=== PATIENT | female | born 1945 | race Caucasian/White ===

== ENCOUNTER → 2023-09-07 07:41 | Outpatient (REF) | payer MEDICARE, OTHER, SELFPAY ==
[2023-09-07 08:54] LABS: % Basophils 0.4 % (0-2); % Eosinophils 1.7 % (0-6); % Immature Granulocytes 0.3 % (0-0.5); % Lymphocytes 22.6 % (20.5-51.1); % Monocytes 11.9 % (1.7-9.3); % Neutrophils 63.1 % (42.2-75.2); Absolute Eosinophils 0.1 10^3/uL (0-0.7); Absolute Lymphocytes 1.7 10^3/uL (1.2-3.4); Absolute Monocytes 0.9 10^3/uL (0.1-0.6); Absolute Neutrophils 4.8 10^3/uL (1.4-6.5); Hematocrit 39.3 % (37.0-47.0); Hemoglobin 12.8 g/dL (12.0-16.0); Mean Corp Hgb Conc. 32.6 g/dL (33.0-37.0); Mean Corpuscular Hgb 30.8 pg (27.0-31.0); Mean Corpuscular Volume 94.7 fL (81.0-99.0); Nucleated Red Blood Cells % 0 %; Platelet Count 171 10^3/uL (130-400); Red Blood Cell Count 4.15 10^6/uL (4.20-5.40); Red Cell Dist. Width 13.2 % (11.5-14.5); White Blood Cell Count 7.6 10^3/uL (4.8-10.8)
[2023-09-07 09:12] LABS: Blood Urea Nitrogen 22 mg/dl (7-17); Calcium 9.7 mg/dl (8.4-10.2); Carbon Dioxide 23 mmol/L (22-30); Chloride 105 mmol/L (98-107); Glucose 101 mg/dl (70-99); Sodium 138 mmol/L (135-145); eGFR > 60.00
== END ==
LOC: RCS 07:41
PROVIDERS: ATTENDING PHYSICIAN Orthopaedic Surgery; FAMILY PHYSICIAN Physician Assistant Medical
DX: Z01.818 Encounter for other preprocedural examination (principal)
CPT/HCPCS: 36415; 80048; 85025; 93005

== ENCOUNTER → 2023-09-22 09:21 | Outpatient (REF) | payer MEDICARE, OTHER, SELFPAY ==
[2023-09-22 09:29] LABS: % Basophils 0.4 % (0-2); % Eosinophils 1.7 % (0-6); % Immature Granulocytes 0.1 % (0-0.5); % Lymphocytes 23.8 % (20.5-51.1); % Monocytes 11.2 % (1.7-9.3); % Neutrophils 62.8 % (42.2-75.2); Absolute Eosinophils 0.1 10^3/uL (0-0.7); Absolute Lymphocytes 1.7 10^3/uL (1.2-3.4); Absolute Monocytes 0.8 10^3/uL (0.1-0.6); Absolute Neutrophils 4.4 10^3/uL (1.4-6.5); Hemoglobin 12.6 g/dL (12.0-16.0); Mean Corp Hgb Conc. 34.1 g/dL (33.0-37.0); Mean Corpuscular Hgb 31.7 pg (27.0-31.0); Mean Platelet Volume 10.7 fL (7.4-10.4); Platelet Count 164 10^3/uL (130-400); Red Blood Cell Count 3.98 10^6/uL (4.20-5.40); White Blood Cell Count 7.1 10^3/uL (4.8-10.8)
== END ==
LOC: OIDL 09:21
PROVIDERS: ATTENDING PHYSICIAN Internal Medicine Hematology & Oncology; OTHER PHYSICIAN Physician Assistant Medical
DX: C50.912 Malignant neoplasm of unspecified site of left female breast (principal); Z85.3 Personal history of malignant neoplasm of breast
CPT/HCPCS: 85025

== ENCOUNTER 2023-10-13 09:14 | Outpatient (RCR) | payer MEDICARE, OTHER, SELFPAY | END 2023-10-13 23:59 | disposition home or self-care (01) | LOC: RPT 09:14 | PROVIDERS: ATTENDING PHYSICIAN Orthopaedic Surgery; FAMILY PHYSICIAN Physician Assistant Medical | DX: R26.89 Other abnormalities of gait and mobility (principal); Z96.652 Presence of left artificial knee joint; Z73.6 Limitation of activities due to disability | CPT/HCPCS: 97010; 97110; 97162 ==

== ENCOUNTER 2023-11-13 07:55 | Outpatient (RCR) | payer MEDICARE, OTHER, SELFPAY | END 2023-11-13 23:59 | disposition home or self-care (01) | LOC: RPT 07:55 | PROVIDERS: ATTENDING PHYSICIAN Orthopaedic Surgery; FAMILY PHYSICIAN Physician Assistant Medical | DX: Z47.1 Aftercare following joint replacement surgery (principal); Z96.652 Presence of left artificial knee joint | CPT/HCPCS: 97010; 97110; 97112 ==

== ENCOUNTER → 2023-11-18 10:59 | Outpatient (REF) | payer MEDICARE, OTHER, SELFPAY ==
[2023-11-18 11:55] LABS: % Basophils 0.4 % (0-2); % Eosinophils 2.5 % (0-6); % Immature Granulocytes 0.4 % (0-0.5); % Lymphocytes 17.7 % (20.5-51.1); % Monocytes 11.3 % (1.7-9.3); % Neutrophils 67.7 % (42.2-75.2); Absolute Eosinophils 0.3 10^3/uL (0-0.7); Absolute Lymphocytes 1.9 10^3/uL (1.2-3.4); Absolute Monocytes 1.2 10^3/uL (0.1-0.6); Absolute Neutrophils 7.1 10^3/uL (1.4-6.5); Hematocrit 35.4 % (37.0-47.0); Hemoglobin 11.9 g/dL (12.0-16.0); Mean Corp Hgb Conc. 33.6 g/dL (33.0-37.0); Mean Corpuscular Hgb 30.8 pg (27.0-31.0); Mean Corpuscular Volume 91.7 fL (81.0-99.0); Mean Platelet Volume 10.8 fL (7.4-10.4); Nucleated Red Blood Cells % 0 %; Platelet Count 188 10^3/uL (130-400); Red Blood Cell Count 3.86 10^6/uL (4.20-5.40); Red Cell Dist. Width 13.3 % (11.5-14.5); White Blood Cell Count 10.5 10^3/uL (4.8-10.8)
[2023-11-18 13:20] LABS: ALT (SGPT) 12 U/L (0-35); AST (SGOT) 23 U/L (14-36); Albumin 4.3 g/dl (3.5-5.0); Alkaline Phosphatase 80 U/L (38-126); Blood Urea Nitrogen 17 mg/dl (7-17); Calcium 9.8 mg/dl (8.4-10.2); Carbon Dioxide 23 mmol/L (22-30); Chloride 101 mmol/L (98-107); Glucose 97 mg/dl (70-99); Potassium 4.1 mmol/L (3.5-5.1); Sodium 139 mmol/L (135-145); Total Bilirubin 1.4 mg/dl (0.2-1.3); Total Protein 6.9 g/dl (6.3-8.2); eGFR > 60.00
== END ==
LOC: REG 10:59
PROVIDERS: ATTENDING PHYSICIAN Physician Assistant Medical
DX: R53.83 Other fatigue (principal); R42 Dizziness and giddiness; R10.30 Lower abdominal pain, unspecified; R19.4 Change in bowel habit; R53.1 Weakness
CPT/HCPCS: 36415; 80053; 85025

== ENCOUNTER → 2023-11-25 12:56 | Outpatient (REF) | payer MEDICARE, OTHER, SELFPAY | LOC: RAD 12:56 | PROVIDERS: ATTENDING PHYSICIAN Physician Assistant Medical | DX: R53.83 Other fatigue (principal) | CPT/HCPCS: 74178; Q9967 ==

== ENCOUNTER 2023-11-27 12:54 | Outpatient (RCR) | payer MEDICARE, OTHER, SELFPAY | END 2023-11-27 23:59 | disposition home or self-care (01) | LOC: RPT 12:54 | PROVIDERS: ATTENDING PHYSICIAN Orthopaedic Surgery; FAMILY PHYSICIAN Physician Assistant Medical | DX: Z47.1 Aftercare following joint replacement surgery (principal); Z73.6 Limitation of activities due to disability; R26.89 Other abnormalities of gait and mobility; Z96.652 Presence of left artificial knee joint | CPT/HCPCS: 97010; 97110; 97112; 97530 ==

== ENCOUNTER → 2023-12-03 06:18 | Day surgery (SDC) | payer MEDICARE, OTHER, SELFPAY | LOC: GI 06:18 | PROVIDERS: ATTENDING PHYSICIAN Internal Medicine | DX: D12.3 Benign neoplasm of transverse colon (principal); D12.5 Benign neoplasm of sigmoid colon; K51.40 Inflammatory polyps of colon without complications; K57.30 Diverticulosis of large intestine without perforation or abscess without bleeding; K29.60 Other gastritis without bleeding; R93.3 Abnormal findings on diagnostic imaging of other parts of digestive tract; R19.4 Change in bowel habit; R63.4 Abnormal weight loss | CPT/HCPCS: 45385; 45380; 43239; 88305; 88342 ==

== ENCOUNTER → 2023-12-21 12:43 | Outpatient (REF) | payer MEDICARE, OTHER, SELFPAY | LOC: RAD 12:43 | PROVIDERS: ATTENDING PHYSICIAN Internal Medicine Cardiovascular Disease; FAMILY PHYSICIAN Physician Assistant Medical | DX: R06.09 Other forms of dyspnea (principal); R60.0 Localized edema | CPT/HCPCS: 93970 ==

== ENCOUNTER → 2024-01-05 10:11 | Outpatient (REF) | payer MEDICARE, OTHER, SELFPAY | LOC: RCS 10:11 | PROVIDERS: ATTENDING PHYSICIAN Internal Medicine Cardiovascular Disease; FAMILY PHYSICIAN Physician Assistant Medical | DX: I34.0 Nonrheumatic mitral (valve) insufficiency (principal); I07.1 Rheumatic tricuspid insufficiency; R06.09 Other forms of dyspnea; R60.0 Localized edema; Z85.3 Personal history of malignant neoplasm of breast | CPT/HCPCS: 93306 ==

== ENCOUNTER → 2024-02-02 06:54 | Outpatient (REF) | payer MEDICARE, OTHER, SELFPAY | LOC: WDC 06:54 | PROVIDERS: ATTENDING PHYSICIAN Internal Medicine Hematology & Oncology; FAMILY PHYSICIAN Physician Assistant Medical | DX: Z12.31 Encounter for screening mammogram for malignant neoplasm of breast (principal); Z85.3 Personal history of malignant neoplasm of breast; C50.912 Malignant neoplasm of unspecified site of left female breast; C50.411 Malignant neoplasm of upper-outer quadrant of right female breast | CPT/HCPCS: 77063; 77067 ==

== ENCOUNTER → 2024-02-15 09:47 | Outpatient (REF) | payer MEDICARE, OTHER, SELFPAY | LOC: RAD 09:47 | PROVIDERS: ATTENDING PHYSICIAN Internal Medicine Critical Care Medicine; FAMILY PHYSICIAN Physician Assistant Medical; REFERRING PHYSICIAN Internal Medicine Endocrinology, Diabetes & Metabolism | DX: R91.8 Other nonspecific abnormal finding of lung field (principal); E04.2 Nontoxic multinodular goiter | CPT/HCPCS: 71250; 76536 ==

== ENCOUNTER 2024-10-13 06:48 | Outpatient (RCR) | payer MEDICARE, OTHER, SELFPAY | END 2024-10-13 23:59 | disposition home or self-care (01) | LOC: RPT 06:48 | PROVIDERS: ATTENDING PHYSICIAN Orthopaedic Surgery; FAMILY PHYSICIAN Physician Assistant Medical | DX: Z47.1 Aftercare following joint replacement surgery (principal); Z73.6 Limitation of activities due to disability; R26.89 Other abnormalities of gait and mobility; M25.561 Pain in right knee; M62.81 Muscle weakness (generalized); Z96.651 Presence of right artificial knee joint | CPT/HCPCS: 97010; 97110; 97162 ==

== ENCOUNTER 2024-11-09 06:47 | Outpatient (RCR) | payer MEDICARE, OTHER, SELFPAY | END 2024-11-09 23:59 | disposition home or self-care (01) | LOC: RPT 06:47 | PROVIDERS: ATTENDING PHYSICIAN Orthopaedic Surgery; FAMILY PHYSICIAN Physician Assistant Medical | DX: Z47.1 Aftercare following joint replacement surgery (principal); Z73.6 Limitation of activities due to disability; R26.89 Other abnormalities of gait and mobility; M25.561 Pain in right knee; M62.81 Muscle weakness (generalized); Z96.651 Presence of right artificial knee joint | CPT/HCPCS: 97010; 97110; 97112 ==

== ENCOUNTER → 2024-12-01 12:54 | Outpatient (REF) | payer MEDICARE, OTHER, SELFPAY | LOC: HWRCS 12:54 | PROVIDERS: ATTENDING PHYSICIAN Internal Medicine Cardiovascular Disease; FAMILY PHYSICIAN Physician Assistant Medical | DX: I34.0 Nonrheumatic mitral (valve) insufficiency (principal); I07.1 Rheumatic tricuspid insufficiency | CPT/HCPCS: 93306 ==

== ENCOUNTER 2024-12-13 06:20 | Outpatient (RCR) | payer MEDICARE, OTHER, SELFPAY | END 2024-12-13 23:59 | disposition home or self-care (01) | LOC: RPT 06:20 | PROVIDERS: ATTENDING PHYSICIAN Orthopaedic Surgery; FAMILY PHYSICIAN Physician Assistant Medical | DX: Z47.1 Aftercare following joint replacement surgery (principal); Z73.6 Limitation of activities due to disability; R26.89 Other abnormalities of gait and mobility; M25.561 Pain in right knee; M62.81 Muscle weakness (generalized); Z96.651 Presence of right artificial knee joint | CPT/HCPCS: 97010; 97110; 97112 ==

== ENCOUNTER 2024-12-19 08:21 | Outpatient (RCR) | payer MEDICARE, OTHER, SELFPAY | END 2024-12-20 12:26 | disposition home or self-care (01) | LOC: RPT 08:21 | PROVIDERS: ATTENDING PHYSICIAN Orthopaedic Surgery; FAMILY PHYSICIAN Physician Assistant Medical | DX: Z47.1 Aftercare following joint replacement surgery (principal); Z73.6 Limitation of activities due to disability; R26.89 Other abnormalities of gait and mobility; M25.561 Pain in right knee; M62.81 Muscle weakness (generalized); Z96.651 Presence of right artificial knee joint | CPT/HCPCS: 97110; 97112 ==

== ENCOUNTER → 2025-02-02 07:10 | Outpatient (REF) | payer MEDICARE, OTHER, SELFPAY | LOC: WDC 07:10 | PROVIDERS: ATTENDING PHYSICIAN Internal Medicine Hematology & Oncology; FAMILY PHYSICIAN Physician Assistant Medical | DX: Z12.31 Encounter for screening mammogram for malignant neoplasm of breast (principal) | CPT/HCPCS: 77063; 77067 ==

== ENCOUNTER → 2025-02-20 09:06 | Outpatient (REF) | payer MEDICARE, OTHER, SELFPAY | LOC: RAD 09:06 | PROVIDERS: ATTENDING PHYSICIAN Internal Medicine Critical Care Medicine; FAMILY PHYSICIAN Physician Assistant Medical | DX: R91.8 Other nonspecific abnormal finding of lung field (principal) | CPT/HCPCS: 71250 ==